=== PATIENT | female | born 1980 | race Caucasian/White ===

== ENCOUNTER 2023-02-04 14:18 | Outpatient (CLI) | payer OTHER, SELFPAY | END 2023-02-04 14:19 | disposition home or self-care (01) | LOC: AMB 02-09 15:47 | PROVIDERS: PCP Physician Assistant Medical; Visit Provider Family Medicine | DX: T14.90XA Injury, unspecified, initial encounter (principal); V43.53XA Car driver injured in collision with pick-up truck in traffic accident, initial encounter; Y92.410 Unspecified street and highway as the place of occurrence of the external cause | CPT/HCPCS: A0998 ==

== ENCOUNTER 2023-02-04 14:52 | Outpatient (CLI) | payer OTHER, SELFPAY | END 2023-02-04 14:53 | disposition home or self-care (01) | LOC: AMB 02-09 11:10 | PROVIDERS: PCP Physician Assistant Medical; Visit Provider Family Medicine | DX: S19.9XXA Unspecified injury of neck, initial encounter (principal); S29.9XXA Unspecified injury of thorax, initial encounter; V43.51XA Car driver injured in collision with sport utility vehicle in traffic accident, initial encounter; Y92.410 Unspecified street and highway as the place of occurrence of the external cause | CPT/HCPCS: A0425; A0427 ==

== ENCOUNTER 2023-02-04 15:14 | Emergency (ER) | payer OTHER, SELFPAY ==
[2023-02-04] VITALS (41 sets, daily range): BP systolic 117–154; BP diastolic 76–108; PULSE 86–109; RESP 16; TEMP 36.7; O2SAT 89–97; BMI 35.5
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
--- NOTE | 2023-02-04 15:29 | ED_ITS ---
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 Last Filed: 02/10/23 07:46> [facility] <Edward Juan MD - Last Filed: 02/10/23 07:46>
[2023-02-04 15:40] LABS: Basophils Absolute Auto 0.01 K/uL (0.00-0.30); Basophils Percent Auto 0.2 % (0.0-3.0); Eosinophils Percent Auto 1.6 % (0.0-7.0); Hematocrit 43.4 % (33.0-51.0); Hemoglobin* 14.4 gm/dL (12.0-16.0); Immature Granulocytes Abs Auto 0.01 K/uL (0.00-0.30); Immature Granulocytes Pct Auto 0.2 %; Lymphocytes Percent Auto 17.5 % (20-44); Mean Corpuscular HGB Conc 33 gm/dL (32-36); Mean Corpuscular Hemoglobin 31 pg (26-34); Mean Corpuscular Volume 95 fL (80-100); Monocytes Percent Auto 6.9 % (0.0-11.0); Neutrophils Percent Auto 73.6 % (42.0-72.0); Platelet Count* 216 K/uL (140-440); RDW Coefficient of Variation % 12.3 % (11.5-15.5); Red Blood Count 4.59 m/uL (4.00-5.20); White Blood Count* 6.23 K/uL (4.50-11.00)
[2023-02-04] MEDS: 0.9 % SODIUM CHLORIDE 500 ML 500 ML IV (15:40)
[2023-02-04] MEDS: MORPHINE 4 MG/ML INJ 2 MG IVP (15:41)
[2023-02-04 15:44] LABS: Slide Review Reflex No
[2023-02-04 16:03] LABS: Albumin* 4.2 g/dL (3.3-5.0)
[2023-02-04 16:04] LABS: Chloride* 106 mmol/L (96-114); Potassium* 3.6 mmol/L (3.6-5.1); Sodium* 138 mmol/L (135-149)
[2023-02-04 16:06] LABS: Amylase* 83 U/L (18-89); Anion Gap 10 mEq/L (7-15); Carbon Dioxide* 22 mmol/L (20-32); Creatinine* 0.7 mg/dL (0.5-1.5); Est. Creatinine Clearance* 100.01; Estimated Glomerular Filt Rate 112 ml/min
[2023-02-04 16:07] LABS: Alanine Aminotransferase* 40 U/L (4-35); Alkaline Phosphatase* 97 U/L (40-150); Aspartate Amino Transferase* 35 U/L (12-35); Bilirubin Total* 0.6 mg/dL (0.1-1.5); Blood Urea Nitrogen* 13 mg/dL (5-24); Glucose* 197 mg/dL (60-115); Total Protein* 8.2 g/dL (6.0-8.3)
[2023-02-04 16:17] LABS: HCG Qualitative Serum* Negative (Negative)
[2023-02-04] MEDS: MORPHINE 4 MG/ML INJ IVP (16:59)
[2023-02-04] MEDS: KETOROLAC 30 MG/ML inj IVP (16:59)
[2023-02-04] MEDS: 0.9 % SODIUM CHLORIDE 500 ML 500 ML 1000 ML IV (17:40)
[2023-02-04 18:04] LABS: Appearance Urine Turbid (Clear); Bilirubin Urine Negative (Negative); Blood Urine Negative (Negative); Color Urine Yellow (Yellow); Glucose Urine Negative (Negative); Ketones Urine Negative (Negative); Leukocyte Esterase Urine Trace (Negative); Nitrite Urine Negative (Negative); Protein Urine Negative (Negative); Specific Gravity Urine 1.015 (1.000-1.030); Urobilinogen Urine 0.2 (0.2-1.0)
[2023-02-05 02:21] LABS: Bacteria Urine Few; RBC Urine 0-2 (0-2); Squamous Epithelial Cell Urine Few (None-Few); WBC Urine 0-2 (0-5)
== END 2023-02-04 19:30 | disposition home or self-care (01) ==
PROVIDERS: Emergency Provider Family Medicine; PCP Physician Assistant Medical
DX: M54.9 Dorsalgia, unspecified (principal); M54.2 Cervicalgia; V43.52XA Car driver injured in collision with other type car in traffic accident, initial encounter
CPT/HCPCS: 36415; 70450; 71045; 72100; 72125; 74176; 80048; 80076; 81001; 82150; 84703; 85025; 87086; 87186; 93005; 94761; 96374; 96375; 96376; 99284; 99285; 99291; G0390; J1885; J2270; J7120

== ENCOUNTER 2023-08-28 12:20 | Emergency (ER) | payer OTHER, SELFPAY ==
[2023-08-28 12:32] VITALS: BP 165/112; PULSE 100; RESP 18; TEMP 36.6; O2SAT 98; BMI 35.5
--- NOTE | 2023-08-28 12:47 | ED.DENTAL ---
HPI - Dental/Oral General Chief complaint: Dental/Oral/Mouth Injury/Pain Stated complaint: Swollen face toothache Time Seen by Provider: 08/28/23 12:21 History of Present Illness HPI Narrative: This 42-year-old female comes in with left upper dental pain that has been present over the past few days now with swelling of her cheek on that side. She does not report any fevers. She states that she lost her job recently and does not have any insurance and is applying for Medicaid. Related Data Home Medications ?Medication ?Instructions ?Recorded ?Confirmed bupropion HCl 300 mg 24 hr tablet, 300 mg PO QAM 03/17/22 08/28/23 extended release (Wellbutrin XL) alprazolam 0.5 mg tablet mg PO 02/04/23 amlodipine 10 mg tablet 10 mg PO DAILY 02/04/23 08/28/23 lisinopril 20 1 tab PO DAILY 02/04/23 08/28/23 mg-hydrochlorothiazide 12.5 mg tablet venlafaxine 150 mg 150 mg PO QPM 08/28/23 08/28/23 capsule,extended release 24 hr Previous Rx's ?Medication ?Instructions ?Recorded amoxicillin 500 mg capsule 500 mg PO TID 10 days #30 caps 08/28/23 ketorolac 10 mg tablet 10 mg PO Q8H 5 days #15 tabs 08/28/23 Allergies Allergy/AdvReac Type Severity Reaction Status Date / Time droperidol AdvReac Intermediate altered Verified 02/04/23 15:54 mental status Review of Systems Status of ROS: Reports: 10 or more systems reviewed and unremarkable except as noted in History and below Narrative: Constitutional: No fevers, no weight gain or loss. Eyes: No discharge. No vision changes. HENT: No congestion, no sore throat, no ear pain. Cardiovascular: No chest pain, no palpitations. Respiratory: No shortness of breath, no wheezes, no cough. Gastrointestinal: No abdominal pain, no vomiting, no diarrhea. Genitourinary: No dysuria, no hematuria. Musculoskeletal: Normal range of motion. Skin: No rashes, no pruritis. Neurological: No dizziness, weakness, sensory change, speech change. Endo/Heme/Allergies: No bruising or bleeding. No polydipsia. Pysch: no suicidality, no anxiety, no insomnia. All other systems reviewed and are negative. PFSH PFSH Social History Smoking Status: Never smoker Do you use any of these nicotine containing products: None Second hand tobacco smoke exposure: No How often do you have a drink containing alcohol: never How often do you have six or more drinks on one occasion: Never AUDIT-C Alcohol total score: 0 Non-prescribed substance use: denies use service: No Exam Narrative: Exam Narrative: Constitutional: Well-developed, well-nourished, no acute distress. HEENT: Normocephalic, atraumatic. Poor dentition. Mild swelling of the left cheek overlying the left upper row of teeth. No sign of abscess on oral exam. Neck: Normal range of motion. Nontender. Supple. Heart: Intact distal pulses. Lungs: No chest discomfort. No wheezes, rhonchi, or rales. Abdomen: Nontender. Back: Normal range of motion. Extremities: Normal range of motion. No injury. Skin: Intact. No rash. Warm. No erythema or pallor. Neurologic: No altered sensation. No weakness. Alert and oriented. Psychiatric: No suicidality. No anxiety or depression. No insomnia. Nursing notes and vitals signs are reviewed. Const: Vital Signs, click to edit/add: Vital Signs - 24 hr 08/28/23 12:32 Temperature 97.8 F Pulse Rate [Right Pulse Oximeter] 100 Respiratory Rate 18 Blood Pressure [Ri ght Upper Arm] 165/112 H Pulse Oximetry 98 Oxygen Delivery Me thod Room Air Course Vital Signs Vital signs: Initial Vital Signs Temperature 97.8 F 08/28/23 12:32 Temperature Source Temporal Artery Scan 08/28/23 12:32 Pulse Rate 100 08/28/23 12:32 Respiratory Rate 18 08/28/23 12:32 Blood Pressure 165/112 H 08/28/23 12:32 Blood Pressure Mean 129 H 08/28/23 12:32 Blood Pressure Position Sitting 08/28/23 12:32 Pulse Oximetry 98 08/28/23 12:32 Oxygen Delivery Method Room Air 08/28/23 12:32 Vital Signs Temperature 97.8 F 08/28/23 12:32 Pulse Rate 100 08/28/23 12:32 Respiratory Rate 18 08/28/23 12:32 Blood Pressure 165/112 H 08/28/23 12:32 Pulse Oximetry 98 08/28/23 12:32 Oxygen Delivery Method Room Air 08/28/23 12:32 Temperature 97.8 F 08/28/23 12:32 Pulse Rate 100 08/28/23 12:32 Respiratory Rate 18 08/28/23 12:32 Blood Pressure 165/112 H 08/28/23 12:32 Pulse Oximetry 98 08/28/23 12:32 Oxygen Delivery Method Room Air 08/28/23 12:32 MDM - Dental/Oral MDM Narrative Medical decision making narrative: This patient comes in with dental pain with some swelling of her cheek overlying the left upper row of teeth. On oral exam there is no sign of drainable abscess. The patient is encouraged to follow-up with dentist as soon as possible. I did provide prescription for amoxicillin and Toradol. Discharge Plan Discharge Clinical Impression: Dental caries Patient Disposition: Home, Self-Care Condition: Stable Additional Instructions: Take medication as prescribed. Follow-up with dentist as soon as possible. Prescriptions: New amoxicillin 500 mg capsule 500 mg PO TID 10 Days Qty: 30 0RF ketorolac 10 mg tablet 10 mg PO Q8H 5 Days Qty: 15 0RF No Action bupropion HCl [Wellbutrin XL] 300 mg tablet extended release 24 hr 300 mg PO QAM lisinopril-hydrochlorothiazide 20-12.5 mg tablet 1 tab PO DAILY alprazolam 0.5 mg tablet PO amlodipine 10 mg tablet 10 mg PO DAILY venlafaxine 150 mg capsule,extended release 24hr 150 mg PO QPM Follow Up/Referrals: Verona George PA-C [Primary Care Provider] - Stand Alone Forms: [facility] Info Instructions
== END 2023-08-28 13:08 | disposition home or self-care (01) ==
LOC: ED 13:01
PROVIDERS: Emergency Provider Emergency Medicine Emergency Medical Services
DX: K02.9 Dental caries, unspecified (principal)
CPT/HCPCS: 99283; 99284